=== PATIENT | male | born 1940 | race Two or more races ===

== ENCOUNTER → 2018-09-07 | Outpatient (CLI) | payer MEDICARE | END | disposition home or self-care (01) | LOC: CVU 12:21 | PROVIDERS: ATTEND Family Medicine | DX: I65.23 Occlusion and stenosis of bilateral carotid arteries (principal); I77.1 Stricture of artery; I70.292 Other atherosclerosis of native arteries of extremities, left leg; I70.201 Unspecified atherosclerosis of native arteries of extremities, right leg; E78.00 Pure hypercholesterolemia, unspecified; I10 Essential (primary) hypertension; Z95.1 Presence of aortocoronary bypass graft | CPT/HCPCS: 93306; 93880; 93922; 93925 ==

== ENCOUNTER → 2018-09-17 | Outpatient (CLI) | payer MEDICARE | END | disposition home or self-care (01) | LOC: CFH 08:04 | PROVIDERS: ATTEND Internal Medicine Cardiovascular Disease | DX: I25.10 Atherosclerotic heart disease of native coronary artery without angina pectoris (principal); I10 Essential (primary) hypertension; I65.21 Occlusion and stenosis of right carotid artery; I70.208 Unspecified atherosclerosis of native arteries of extremities, other extremity; Z95.1 Presence of aortocoronary bypass graft | CPT/HCPCS: 78452; 93017; A9502 ==

== ENCOUNTER 2018-10-24 09:59 | Observation (INO) | payer MEDICARE ==
[2018-10-23 15:18] LABS: BASOPHILS # (AUTO) 0.03 x10^3/uL (0-0.1); BASOPHILS % (AUTO) 0 % (0-1); EOSINOPHILS % (AUTO) 3 % (1-7); LYMPHOCYTES # (AUTO) 1.38 x10^3/uL (1-3.4); LYMPHOCYTES % (AUTO) 20 % (22-44); MD NO; MEAN CORPUSCULAR HEMOGLOBIN 31.4 pg (27.5-34.5); MEAN CORPUSCULAR VOLUME 92.2 fL (81-97); MEAN PLATELET VOLUME 7.4 fL (7.4-10.4); MONOCYTES # (AUTO) 0.45 x10^3/uL (0.2-0.8); MONOCYTES % (AUTO) 7 % (2-9); NEUTROPHILS # (AUTO) 4.73 x10^3/uL (1.8-6.8); NEUTROPHILS % (AUTO) 70 % (42-75); PLATELET COUNT 190 x10^3/uL (130-400); RED BLOOD COUNT 4.41 x10^6/uL (4.38-5.82)
[2018-10-23 15:26] LABS: ALANINE AMINOTRANSFERASE 27 U/L (12-78); ALBUMIN 3.6 g/dL (3.4-5.0); ANION GAP 9 mmol/L (5-15); CALCIUM 9.2 mg/dL (8.5-10.1); CHLORIDE 108 mmol/L (98-107); CREATININE 1.57 mg/dL (0.7-1.3)
[2018-10-23 15:28] LABS: ALKALINE PHOSPHATASE 125 U/L (45-117); BILIRUBIN,TOTAL 0.6 mg/dL (0.2-1.0); TOTAL PROTEIN 7.4 g/dL (6.4-8.2)
[~2018-10-24] VITALS: Ht 177.8 cm; Wt 85.3 kg
[~2018-10-24 09:59] MED LIST: ALLO100T30 PO; ASPI-496 PO; EZET10TA18 PO; INDO50CA5 PO; LISI1TAB5 PO; METO25TA91 PO; ROSU40TA PO; TAMS-11 PO
[2018-10-24] MEDS ORDERED: SODIUM CHLORIDE 0.9% 1,000 ML IV SCH (11:00)
[2018-10-24] MEDS ORDERED: FENTANYL PF 100 MCG/2ML ONE (11:19)
[2018-10-24] MEDS ORDERED: MIDAZOLAM 1 MG/ML, 2ML ONE ×2 (11:19→11:49)
[2018-10-24] MEDS ORDERED: MIDAZOLAM 1 MG/ML, 5ML ONE (11:19)
[2018-10-24] MEDS ORDERED: HEPARIN 1,000 UNITS/ML, 10ML ONE (11:20)
[2018-10-24] MEDS ORDERED: NITROGLYCERIN 5 MG/ML, 10ML ONE (11:20)
[2018-10-24] MEDS ORDERED: LIDOCAINE 1%, 20ML ONE (11:20)
[2018-10-24] MEDS ORDERED: VERAPAMIL 2.5 MG/ML, 2ML ONE (11:23)
[2018-10-24] MEDS ORDERED: BIVALIRUDIN 250 MG ONE (11:34)
[2018-10-24] MEDS ORDERED: TICAGRELOR 90 MG TABLET ONE (12:46)
[2018-10-24] MEDS: SODIUM CHLORIDE 0.9% 1,000 ML IV SCH ×2 (12:55→20:55)
[2018-10-24] MEDS ORDERED: BISACODYL 5 MG EC TABLET PO PRN (13:00)
[2018-10-24 19:04] VITALS: BP 165/74
[2018-10-24] MEDS: TICAGRELOR 90 MG TABLET PO SCH (20:30)
[2018-10-24] MEDS ORDERED: TEMPLATE NON-FORMULARY MED. (Rosuvastatin Calcium** (Crestor**) 40 MG) PO SCH (21:00)
[2018-10-25 00:16] VITALS: BP_SYST 174; BP_SYST 179; BP_DIAS 86; BP_DIAS 93
[2018-10-25] MEDS ORDERED: LISINOPRIL 10 MG TABLET PO ONE (00:30)
[2018-10-25] MEDS: SODIUM CHLORIDE 0.9% 1,000 ML IV SCH (04:55)
[2018-10-25 05:37] LABS: CHLORIDE 109 mmol/L (98-107)
[2018-10-25 06:07] LABS: ANION GAP 10 mmol/L (5-15); CALCIUM 9.1 mg/dL (8.5-10.1); CREATININE 1.43 mg/dL (0.7-1.3)
[2018-10-25 07:32] VITALS: BP 133/87
[2018-10-25] MEDS ORDERED: LISINOPRIL 20 MG TABLET PO SCH (09:00)
[2018-10-25] MEDS ORDERED: EZETIMIBE 10 MG TABLET PO SCH (09:00)
[2018-10-25] MEDS ORDERED: ASPIRIN 81 MG TABLET EC PO SCH (09:00)
[2018-10-25] MEDS ORDERED: METOPROLOL SUCCINATE 25 MG TAB.ER.24H PO SCH (09:00)
[2018-10-25] MEDS ORDERED: HYDROCHLOROTHIAZIDE 12.5 MG CAPSULE PO SCH (09:00)
[2018-10-25] MEDS ORDERED: TAMSULOSIN 0.4 MG CAP.ER.24H PO SCH (09:00)
[2018-10-25] MEDS ORDERED: TICA90TA PO (09:01)
[2018-10-25] MEDS: TICAGRELOR 90 MG TABLET PO SCH (09:14)
== END 2018-10-25 11:50 | disposition home or self-care (01) ==
LOC: CACL 09:59 → ORIP 12:55 → 5SO 15:04 → DCLOUNGE 10-25 11:37
PROVIDERS: ADMIT Internal Medicine Cardiovascular Disease; ATTEND Internal Medicine Cardiovascular Disease
DX: I25.10 Atherosclerotic heart disease of native coronary artery without angina pectoris (principal); I10 Essential (primary) hypertension; E78.2 Mixed hyperlipidemia; I65.21 Occlusion and stenosis of right carotid artery; I70.208 Unspecified atherosclerosis of native arteries of extremities, other extremity; Z95.1 Presence of aortocoronary bypass graft; Z79.82 Long term (current) use of aspirin; Z79.899 Other long term (current) drug therapy
CPT/HCPCS: 36415; 80048; 80053; 85014; 85018; 85025; 93458; 99156; 99157; C1725; C1760; C1769; C1874; C1887; C1894; C9604; G0378; J0583; J1644; J2250; J3010; J3490; Q9967

== ENCOUNTER 2019-12-26 07:31 | Outpatient (CLI) | payer MEDICARE ==
[~2019-12-26 07:31] MED LIST changes: -EZET10TA18 PO; +EZET10TA70 PO; +INDO50CA15 PO; -INDO50CA5 PO; +LISI1TAB19 PO; -LISI1TAB5 PO; +TICA90TA PO
== END 2019-12-26 23:59 | disposition home or self-care (01) ==
LOC: CVU 07:31
PROVIDERS: ATTEND Internal Medicine Cardiovascular Disease
DX: I70.213 Atherosclerosis of native arteries of extremities with intermittent claudication, bilateral legs (principal); I10 Essential (primary) hypertension; I25.810 Atherosclerosis of coronary artery bypass graft(s) without angina pectoris; R09.89 Other specified symptoms and signs involving the circulatory and respiratory systems; Z95.820 Peripheral vascular angioplasty status with implants and grafts; Z79.899 Other long term (current) drug therapy
CPT/HCPCS: 93922; 93925